=== PATIENT | female | born 1950 | race Caucasian/White ===

== ENCOUNTER 2019-04-23 08:02 | Inpatient (IN) ==
[2019-04-23 08:49] LABS: BASO# 0.01 X1000 (0.0-0.2); BASO% 0.1 % (0.0-0.8); EOS# 0.02 X1000 (0.0-0.7); EOS% 0.2 % (0.0-10.0); HEMATOCRIT 34.8 % (37.0-47.0); HEMOGLOBIN 12.4 g/dL (12.0-16.0); IMM GRAN# 0.03 X1000 (0.0-0.04); IMM GRAN% 0.2 % (0.0-0.5); LYMPH# 1.42 X1000 (1.2-3.4); LYMPH% 11.1 % (20.5-51.1); MCH 32.1 PG (27-31); MCHC 35.6 g/dL (33-37); MCV 90.2 FL (81-99); MONO# 1.33 X1000 (0.11-0.59); MONO% 10.4 % (1.7-9.3); MPV 9.3 FL (7.4-10.4); NEUT# 9.99 X1000 (1.4-6.5); PLT 309 X1000 (130-400); RBC 3.86 XMIL (4.2-5.4)
[2019-04-23 09:00] LABS: ESTIMATED GFR > 60
[2019-04-23] MEDS ORDERED: NS 1,000 ML IV ONE ×2 (09:24→09:31)
--- NOTE | 2019-04-23 09:28 | EKG Report ---
Test Performed on : 04/23/2019 08:30:33 AM Test Reason : fall/hypothermia Blood Pressure : / mmHG Vent. Rate : 068 BPM Atrial Rate : 068 BPM P-R Int : 180 ms QRS Dur : 108 ms QT Int : 438 ms P-R-T Axes : 079 070 044 degrees QTc Int : 465 ms Normal sinus rhythm. Possible Left atrial enlargement Incomplete right bundle branch block Borderline ECG When compared with ECG of 21-APR-2019 17:43, (Unconfirmed) No significant change was found Unconfirmed Result
[2019-04-23 09:33] LABS: CK INDEX 0.4 (0.0-2.5); CK-MB 43.21 ng/mL (0.0-5.0)
[2019-04-23 09:33] LABS: AGAP 17; ALBUMIN 4.6 g/dL (3.5-5.0); ALKALINE PHOSPHATASE 64 U/L (32-104); BUN 22 mg/dL (8-22); CALCIUM 9.8 mg/dL (8.8-10.2); CHLORIDE 83 mmol/L (98-107); COSMO 241; CREATININE 0.8 mg/dL (0.5-0.9); GLUCOSE 86 mg/dL (70-104); GOT 241 U/L (10-30); GPT 143 U/L (10-36); POTASSIUM 5.4 mmol/L (3.5-5.1); TCO2 18 mmol/L (25-35); TOTAL PROTEIN 7.3 g/dL (6.3-8.3)
[2019-04-23 09:39] LABS: SODIUM 118 mmol/L (136-145)
[2019-04-23 09:48] LABS: INR 1.06; PROTIME 14.4 Seconds (11.0-16.0)
[2019-04-23 09:49] LABS: PTT 35.2 Seconds (22.3-41.8)
--- NOTE | 2019-04-23 09:57 | Diag Imaging Result Doc PS360 ---
EXAM: CHEST-1 VIEW - 04/23/2019 HISTORY: r/o sepsis TECHNIQUE: Portable chest one view COMPARISON: 04/21/2019 chest two views FINDINGS: Heart size appears upper normal stable. Lungs appear grossly clear. There is no consolidation, pleural effusion, thorax identified. IMPRESSION: No evidence of acute disease. Electronically signed by Td Hawkins 04/23/2019 9:55 AM
[2019-04-23 10:25] LABS: FREE T4 1.75 ng/dL (0.93-1.70); TSH 0.91 uIUmL (0.27-4.20)
--- NOTE | 2019-04-23 10:34 | PROVIDER DOCUMENTATION ---
This chart was entered by [place] Scribe, acting as scribe for Jaylin Sebastian MD. HPI-General Adult - General Chief Complaint: Fall Stated Complaint: fall/ outside all night Time Seen by Provider: 04/23/19 08:13 Source: patient Allergies/Adverse Reactions: Patient Allergies Allergy/AdvReac Type Severity Reaction Status Date / Time Penicillins Allergy Severe RASH Verified 04/21/19 15:19 Sulfa (Sulfonamide Allergy Severe NAUSEA/VOMI Verified 04/21/19 15:19 Antibiotics) TING Home Medications: Home Medication List Medication Instructions Recorded Confirmed Last Taken Type Buspirone [Buspar] 15 mg PO BID 03/13/16 04/21/19 03/07/17 04:30 History Calcium Carbonate/Vitamin D3 1 each PO DAILY 03/13/16 04/21/19 03/06/17 09:00 History [Calcium 600-Vit D3 200 Tablet] Levothyroxine [Synthroid] 150 microgm PO DAILY 03/13/16 04/21/19 03/07/17 04:30 History Tramadol [Ultram] 50 mg PO TID 03/13/16 04/21/19 12/14/16 History Trazodone E.r. [Oleptro ER] 150 mg PO QHS 03/13/16 04/21/19 03/06/17 21:00 History Bupropion HCl [Bupropion Xl] 1 tab PO DAILY 04/21/19 04/21/19 Unknown History Meclizine HCl [Travel-Ease] 12.5 mg PO 04/21/19 Unknown History Pregabalin [Lyrica] 1 tab PO BID 04/21/19 04/21/19 Unknown History Promethazine HCl 25 mg PO BID 04/21/19 04/21/19 Unknown History Sertraline [Zoloft] 1 tab PO DAILY 04/21/19 04/21/19 Unknown History Sertraline [Zoloft] 50 mg PO DAILY 04/23/19 04/23/19 04/22/19 History - History of Present Illness -Gen Adult Nature of Presenting Problems: Patient is a 68 year old female who presents to the ED via EMS after being found outside. Patient states she fell yesterday around 1400 and could not get up. Reports she was found this morning by her neighbor. Denies pain currently. Location of Pain/Injury: reports: none Quality of Pain: reports: none Severity: reports: mild Onset/Duration: reports: other (1400 yesterday) Timing: reports: still present Context/Activities at Onset: reports: light activity Associated Symptoms: reports: denies symptoms Similar Symptoms Previously?: No Recently seen or treated by another doctor?: No Review of Systems - Adult - REVIEW OF SYSTEMS - ADULT Constitutional: reports: no symptoms reported Eyes: reports: no symptoms reported Ears, Nose, Mouth & Throat: reports: no symptoms reported Cardiovascular: reports: no symptoms reported Respiratory: reports: no symptoms reported Gastrointestinal: reports: no symptoms reported Genitourinary: reports: no symptoms reported Musculoskeletal: reports: no symptoms reported Integumentary: reports: no symptoms reported Neurological: reports: no symptoms reported Psychiatric: reports: no symptoms reported Endocrine: reports: no symptoms reported Hematologic/Lymphatic: reports: no symptoms reported Allergic/Immunologic: reports: no symptoms reported All Other Systems: Reviewed and Negative Past History - Adult - PAST MEDICAL HISTORY-ADULT Review of Records: reports: Old Records Reviewed, Nursing Assessment Review, Medications Reviewed, Social history reviewed & non-contributory. Major Childhood Illnesses: reports: denies history Cardiovascular: reports: denies history Respiratory: reports: COPD Gastrointestinal: reports: denies history Obstetrical/Gynecological: reports: denies history Genitourinary: reports: denies history Musculoskeletal: reports: denies history Neurological: reports: denies history Psychiatric: reports: bipolar Endocrine/Immune: reports: thyroid disorder Other Conditions: reports: denies history - PRIOR SURGERIES/PROCEDURES Surgical/Procedure History: reports: cholecystectomy, hysterectomy, hernia repair - IMMUNIZATION STATUS Childhood Immunizations: See Nurse Assessment Flu Vaccine: See Nurse Assessment - FAMILY HISTORY Family History: reviewed, not pertinent - SOCIAL HISTORY Smoking: cigarettes, less than 1 pack/day Provider spent 3-5 mins advising pt. on dangers of tobacco.: Discussed manners to quit use, and f/u contacts for add'l counseling. Substance Use: denies Physical Exam-General - PHYSICAL EXAM-ADULT Initial Vital Signs Reviewed: Yes - CONSTITUTIONAL General Appearance: alert, slow to respond - EYES Eyes: PERRL/EOMI - HEAD, EARS, NOSE, MOUTH & THROAT HENMT: normocephalic/atraumatic - NECK Neck: non-tender. negative: lymphadenopathy - RESPIRATORY Respiratory: lungs clear, normal breath sounds - CARDIOVASCULAR Cardiovascular: regular rate, rhythm, no edema - GASTROINTESTINAL (ABDOMEN) Abdominal Exam: non tender, soft - LYMPHATIC Lymphatic: no adenopathy - MUSCULOSKELETAL Back Exam: no CVA tenderness, no vertebral tenderness Extremity: non-tender - SKIN Integumentary: other (bruises on chest) - PSYCHIATRIC Psych/Mental Status: normal mood/affect Progress - PLAN OF CARE/RESULTS Progress/Plan/Lab Results: Vital Signs - 8 hr 04/23/19 08:01 04/23/19 08:52 04/23/19 09:19 Temperature 93.3 F L 97.8 F Pulse Rate 85 68 66 Respiratory Rate 20 21 22 Blood Pressure 141/080 165/83 88/65 O2 Sat by Pulse Oximetry 100 97 98 Laboratory Results - last 24 hr 04/23/19 04/23/19 04/23/19 08:21 08:21 09:00 WBC 12.80 H D RBC 3.86 L Hgb 12.4 D Hct 34.8 L MCV 90.2 MCH 32.1 H MCHC 35.6 RDW Std Deviation 12.0 Plt Count 309 MPV 9.3 Immature Gran % (Auto) 0.2 Neut % (Auto) 78.0 H Lymph % (Auto) 11.1 L [place] % (Auto) 10.4 H Eos % (Auto) 0.2 Baso % (Auto) 0.1 Immature Gran # (Auto) 0.03 Neut # (Auto) 9.99 H Lymph # (Auto) 1.42 [place] # (Auto) 1.33 H Eos # (Auto) 0.02 Baso # (Auto) 0.01 Estimated GFR/1.73 m2 > 60 Creatine Kinase 06953 H Orders Category Date Time Status CBC WITH ELECTRONIC DIFF [HEME] Stat Lab 04/23/19 08:21 Completed CK PROFILE [SP CHEM] Stat Lab 04/23/19 08:21 Results COMPREHENSIVE METABOLIC PANEL [CHEM] Stat Lab 04/23/19 09:00 Results Generalized Adult Illness >60 Stat Oth 04/23/19 08:22 Ordered EKG [EKG] Stat Ther 04/23/19 08:22 Ordered Result Diagrams: 04/23/19 08:21 04/23/19 09:00 - EKG 1 Time of EKG reading by physician:: 08:30 EKG Read and Signed by:: Jaylin Sebastian EKG Interpretation (*Must complete 3 of following elements*): Abnormal Rate: 68 Rhythm: normal sinus rhythm [place]: normal QRS: RBB (incomplete) MN Interval: normal Comments: possible left atrial enlargement - XRAY 1 XRAY Study: Chest Impression: See EMR Report ( EXAM: CHEST-1 VIEW - 04/23/2019 HISTORY: r/o sepsis TECHNIQUE: Portable chest one view COMPARISON: 04/21/2019 chest two views FINDINGS: Heart size appears upper normal stable. Lungs appear grossly clear. There is no consolidation, pleural effusion, thorax identified. IMPRESSION: No evidence of acute disease. Electronically signed by Td Hawkins 04/23/2019 9:55 AM 04/23/19 0955 Interpreting Physician: Td Hawkins MD Dictated Date/Time: 04/23/19951 cc: Jaylin Sebastian MD; Mary Jane Mahoney) - CONSULTS/PCP/HOSPITALIST Notification #1 *Consult/PCP/Hospitalist*: Dr. Alfred Time Discussed: 09:39 Reason/Comments: Dr. Sebastian consulted with Dr. Alfred about patient Consult Disposition: other (Tima states call back with kidney function.) #2 Consult: Dr. Alfred Time Discussed: 10:37 Reason/Comments: Dr. Sebastian consulted with Dr. Alfred about patient Consult Disposition: Will see in ED Departure - Departure Date of Disposition Decision: 04/23/19 Time of Disposition Decision: 09:39 DIAGNOSIS: Hyponatremia Rhabdomyolysis Qualifiers: Rhabdomyolysis type: traumatic Encounter type: initial encounter Qualified Code(s): T79.6XXA - Traumatic ischemia of muscle, initial encounter Hypothermia Qualifiers: Encounter type: initial encounter Qualified Code(s): T68.XXXA - Hypothermia, initial encounter Disposition: [facility] 02 Certified Medical Emergency: Emergent Condition: Serious Referrals and Follow-Ups: Mary Jane Mahoney CRNP [Primary Care Provider] - - Critical Care Note This patient required my direct & personal management of CC.: No Attestation - Physician/ EDDIE Attestation Patient care was provided by Advanced Practice Provider:: No The physician spent face to face time with patient:: Yes Advanced Practice Provider documentation review:: Supervising physician onsite and consulted in the evaluation and care of this patient. The physician did have a face to face encounter with the patient. This chart was documented by the indicated scribe, ([place] Scribe) and accurately reflects the services I performed and decisions made by Romulo ruelas Mai Huu, MD, as attested by the provider's signature.
[2019-04-23 10:42] LABS: BILIRUBIN URINE NEGATIVE (NEGATIVE); BLOOD URINE 4+ (NEGATIVE); CLARITY SL. CLOUDY (CLEAR); COLOR YELLOW; GLUCOSE URINE NEGATIVE (NEGATIVE); KETONE URINE 2+(Moderate) mg/dL (NEGATIVE); LEUKOCYTES URINE TRACE (NEGATIVE); NITRITE URINE NEGATIVE (NEGATIVE); PROTEIN URINE 1+(30 mg/dL) mg/dL (NEGATIVE); URINE BACTERIA 4+ /HFP; URINE CAST NONE SEEN /LPF; URINE CRYSTAL NONE SEEN /HPF; URINE EPITHELIAL CELLS <10 /HPF (<10); URINE RBC <10 /HPF (<10); URINE SOURCE CATH; URINE WBC <10 /HPF (<10); URINE YEAST NONE SEEN /HPF; UROBILINOGEN URINE NORMAL
--- NOTE | 2019-04-23 11:12 | Diag Imaging Result Doc PS360 ---
EXAM: CT HEAD W/O CONTRAST - 04/23/2019 HISTORY: head injury, lethargy TECHNIQUE: CT head without contrast COMPARISON: 04/21/2019 FINDINGS: There are mild artifacts from motion. There is no evidence of intracranial hemorrhage, mass effect, or midline shift. There is stable mild ventricular asymmetry compatible with long-standing change. There is no evidence of infarct, although acute infarcts may not be immediately visible. There is no evidence of skull fracture. Visualized portions of paranasal sinuses and mastoid air cells appear clear. IMPRESSION: No visible acute intracranial abnormality. No evidence of intracranial injury. No hemorrhage or mass effect. This exam was performed using automated exposure control, adjustment of mA or kV according to patient size, and/or use of iterative reconstruction technique. Electronically signed by Td Hawkins 04/23/2019 11:10 AM
[2019-04-23] MEDS ORDERED: DUONEB (A & A) INH PRN (12:03)
[2019-04-23] MEDS ORDERED: NS 1,000 ML IV SCH ×4 (12:03→15:45)
[2019-04-23] MEDS ORDERED: ZOFRAN IV PRN (12:03)
[2019-04-23] MEDS ORDERED: TAZIDIME 1 GM in NS 50 ML IV SCH (12:15)
[2019-04-23] MEDS: MAXIPIME 1 GM in NS 50 ML IV SCH (12:39)
--- NOTE | 2019-04-23 13:08 | Diag Imaging Result Doc PS360 ---
EXAM: XRAY HIP W/PELVIS BILAT 3-4VWS 04/23/2019 HISTORY: frequent falls and unable to bare weight TECHNIQUE: AP pelvis and bilateral hips four views COMMENT: The hip joint spaces are well-maintained. There is no evidence of fracture or dislocation. IMPRESSION: No acute bony abnormality. Electronically signed by Kapil Waters 04/23/2019 1:06 PM
--- NOTE | 2019-04-23 14:02 | HISTORY AND PHYSICAL ---
PRIMARY CARE PROVIDER: NITZA Rosenberg. CHIEF COMPLAINT: Falls. HISTORY OF PRESENT ILLNESS: Ms. Francy Solorio is a 68-year-old female with a medical history of bipolar disorder and GERD, frequent UTIs and pneumonia, arthritis, hypothyroidism, and COPD. She states that on she had a fall outside going down her steps. At that time, she landed on her left side and developed left wrist pain, right elbow, and just generally left-sided pain. She went to her primary care provider Mary Jane Mahoney on Tuesday, where she was seen for the fall, and then sent home. She actually drove herself there. Then, she had another fall on Tuesday morning where she came here to the emergency department. She was scanned on her wrist, which did not reveal any fractures, and then she was sent home. Yesterday Tuesday around 1:00 or 2:00 in the afternoon, she had another fall going downstairs, but this time was not able to get up. She yelled, and no one was able to help her, and she essentially stayed outside in the cold until about 8:00 this morning where she was found by school kids. Laboratory data reveals that she has a low sodium level, elevated potassium level, and elevated liver enzymes along with significant elevation in her CK with preserved kidney function. It also looks like she may have urinary tract infection but she denies any urinary symptoms. [place] [address], and she came in with a temperature of 93.3 degrees. She was warmed up with the Kristina Hugger blanket warmer. Currently, she is alert. She is stable. She is able to answer all questions appropriately. She states that she still cannot bear weight, and we are going to transfer her to the ICU over at [facility] for further evaluation and treatment. We will also image her hip and pelvis just to make sure there is no fracture, and that is why she was unable to get up. She denies any pain in this area. PAST MEDICAL HISTORY: 1. COPD. 2. Peripheral neuropathy. 3. Bipolar disorder. 4. GERD. 5. Frequent pneumonia and urinary tract infections. 6. Osteoarthritis. 7. Hypothyroidism. PAST SURGICAL HISTORY: 1. Hysterectomy. 2. Multiple ankle surgeries. 3. Diaphragmatic hernia repair. 4. Cholecystectomy. 5. Left knee scoped. SOCIAL HISTORY: She smokes around 5 cigarettes per day. She has been smoking since age of 28. She drinks 1 glass of red wine about once every 1 to 2 weeks. Denies any illicit drug use. She lives by herself. She is still driving. She is . She does not work. Lives in [place]. She has 3 adult children. FAMILY HISTORY: Mother had heart disease. Father unknown of any medical conditions. She states he lived to his 80s. ALLERGIES: Penicillin and sulfa, but also she can tolerate Keflex and ceftazidime according to Dr. Garcia's note from 2017. HOME MEDICATIONS: Have not been reconciled yet. REVIEW OF SYSTEMS: Fourteen point review of systems, are complete and all were negative for those mentioned above in HPI. She denied fever, chills, other than being cold from last night. She does have some nausea and has pain in the left rib, right elbow and in both elbows and both knees. They are both skinned up. She is bruised up and down the left side. PHYSICAL EXAMINATION: VITAL SIGNS: Temperature 98.1 degrees, heart rate 77, respiratory rate 21, blood pressure 145/65, and O2 saturation 97% on room air. GENERAL: Ms. Francy Solorio is a 68-year-old female. She is in no acute distress. She is able to answer questions appropriately. HEENT: Atraumatic, normocephalic. Pupils are equal and reactive. Extraocular movements intact. Mucous membranes are actually very moist. She has no teeth. Her drop lower jaw protrudes, and so does her tongue while speaking. NECK: Trachea midline. CARDIOVASCULAR: S1, S2. Regular rate and rhythm. No rubs, gallops, or murmurs. No lower extremity edema. +2 dorsalis and radial pulses negative for JVD or carotid bruits. PULMONARY: Clear to auscultation. Some mild expiratory wheezes noted. No accessory muscle use or work of breathing noted. ABDOMEN: Soft, nontender, and nondistended. Positive bowel sounds x4. EXTREMITIES: Difficulties with range of motion in the lower extremities. The strength is equal about 3/5. 5/5 hand strength bilaterally. Moves all upper extremities equally. NEUROLOGIC: Alert and oriented x3. Follows commands. Sensory is intact. SKIN: Warm and dry. She has got abrasions on both knees and on both elbows. She has a lot of ecchymosis in the left hand. Ecchymosis in the left shoulder, left ribs and down to the left flank area. There is some bruising over the right elbow, both knees and down the shins. These are different stages of bruising. LABORATORY DATA: White blood cells 12,000, hemoglobin 12, hematocrit 34, and platelet count 309,000. INR is 1.06. PTT 35.2. Sodium 118, potassium 5.4, BUN 22, creatinine 0.8, glucose 86, calcium 9.8, bilirubin 0.90, AST 241, ALT 143. CK 11,098. Index 0.4, MB is 43, troponin less than 0.01. Albumin 4.6. Serum lactate 0.9. TSH 0.91, free T4 is 1.75. Urinalysis slightly cloudy, 1+ protein, 2+ ketones, 4+ blood and negative nitrite, trace white blood cells, 4+ bacteria. No yeast. IMAGING: Chest x-ray no acute disease. Head CT no acute disease. EKG normal sinus rhythm, rate 68, QTc 465. ASSESSMENT/PLAN: 1. Hypothermia secondary to fall around 1:00 in the afternoon yesterday until 8:00 in the morning today so that is at least 19 to 20 hours of being out in the freezing cold outside. She was warmed with a Kristina Hugger, and a blanket warmer, and is now normal thymic. 2. Frequent falls. She has had 3 falls since . There are no obvious fractures, but this last fall she was unable to get up, and could be secondary to her strength, but we will get some imaging of her hip and pelvis just to make sure there is no fracture there. 3. Left wrist imaging was done on when she came in. It was negative for any fracture as well. Multiple abrasions different stages of bruising on the left side, and on both elbows and legs. Want to get physical therapy to help her as well. 4. Bipolar. We will resume her home medications once reconciled. 5. Hypothyroidism. Continue Synthroid once is reconciled. 6. Peripheral neuropathy. 7. COPD. We will do nebulizers. She did have some mild expiratory wheezes. 8. Rhabdomyelitis. She will get aggressive IV fluid hydration. She has preserved kidney function. 9. Hyponatremia. She is going to be getting sodium chloride IV fluids. She is currently not confused. 10. Hyperkalemia. Should improve with IV fluid hydration. 11. GERD. Continue proton pump inhibitor. 12. Urinary tract infection but currently denies any urinary symptoms. We will do ceftazidime what she has had in the past, and apparently has not had any allergic reaction to it according to an old note of Dr. Garcia's. 13. Tobacco abuse. Cessation discussed. 14. Since she is going to be getting aggressive IV fluid hydration for her rhabdomyolysis, we will order an echocardiogram to check her heart function. Dictated by NITZA Ricks for Neo Alfred MD cc: NITZA Ricks MD
[2019-04-23 15:41] LABS: AGAP 16; BUN 18 mg/dL (8-22); CALCIUM 8.2 mg/dL (8.8-10.2); CHLORIDE 90 mmol/L (98-107); COSMO 253; CREATININE 0.8 mg/dL (0.5-0.9); ESTIMATED GFR > 60; GLUCOSE 91 mg/dL (70-104); PHOSPHORUS 2.2 mg/dL (2.7-4.5); SODIUM 125 mmol/L (136-145); TCO2 19 mmol/L (25-35)
[2019-04-23 15:50] LABS: CK TOTAL 10814 U/L (24-173)
[2019-04-23] MEDS: DUONEB (A & A) INH SCH ×2 (15:53→21:18)
[2019-04-23] MEDS: NS 1,000 ML IV SCH (17:37)
--- NOTE | 2019-04-23 20:07 | HISTORY AND PHYSICAL ---
ADDENDUM: Patient seen and examined by myself. Full note dictated and discussed with nurse practitioner. The patient is a quite ill female who apparently had fallen off her porch last night, and had laid on the ground until someone found her this morning. Upon initial exam, she had a CPK at 11,000, sodium at 118, potassium at 5.4. AST and ALT both were elevated. We are going to admit her to the hospital, place her on IV fluids, follow her rhabdomyolysis. She certainly may require bicarb if she does not turn around quickly. We will follow her potassium. Further orders as needed. cc: Neo Alfred MD
[2019-04-23] MEDS: PRILOSEC PO SCH (20:22)
[2019-04-23] MEDS: HEPARIN SUBQ SCH (20:22)
[2019-04-23] MEDS: MIRALAX PO SCH (20:22)
[2019-04-23] MEDS: PULMICORT INH SCH (21:19)
[2019-04-24] MEDS: MAXIPIME 1 GM in NS 50 ML IV SCH ×2 (00:59→12:50)
[2019-04-24] MEDS: NS 1,000 ML IV SCH ×2 (00:59→11:50)
[2019-04-24] MEDS: DUONEB (A & A) INH SCH ×4 (03:49→21:12)
[2019-04-24 06:01] LABS: INR 1.21; PROTIME 15.5 Seconds (11.0-16.0); PTT 33.4 Seconds (22.3-41.8)
[2019-04-24] MEDS: SYNTHROID PO SCH (06:03)
[2019-04-24] MEDS: PRILOSEC PO SCH ×2 (06:03→20:19)
[2019-04-24 06:11] LABS: PHOSPHORUS 2.2 mg/dL (2.7-4.5)
[2019-04-24 06:13] LABS: AGAP 14; ALB/GLOB RATIO 1.8; ALBUMIN 3.3 g/dL (3.5-5.0); ALKALINE PHOSPHATASE 43 U/L (32-104); BUN 14 mg/dL (8-22); CALCIUM 8.4 mg/dL (8.8-10.2); CHLORIDE 97 mmol/L (98-107); COSMO 263; CREATININE 0.7 mg/dL (0.5-0.9); ESTIMATED GFR > 60; GLUCOSE 88 mg/dL (70-104); GOT 159 U/L (10-30); GPT 105 U/L (10-36); MAGNESIUM 1.8 mg/dL (1.5-2.7); POTASSIUM 3.6 mmol/L (3.5-5.1); SODIUM 131 mmol/L (136-145); TCO2 20 mmol/L (25-35); TOTAL BILIRUBIN 0.47 mg/dL (0.20-1.00); TOTAL PROTEIN 5.1 g/dL (6.3-8.3)
[2019-04-24 06:20] LABS: HEMATOCRIT 25.5 % (37.0-47.0); HEMOGLOBIN 9.1 g/dL (12.0-16.0); MCH 32.5 PG (27-31); MCHC 35.7 g/dL (33-37); MCV 91.1 FL (81-99); MPV 9.5 FL (7.4-10.4); RBC 2.8 XMIL (4.2-5.4); RDW 12.1 % (11.5-14.5); WBC 6.44 X1000 (4.8-10.8)
[2019-04-24 06:51] LABS: CK INDEX 0.3 (0.0-2.5); CK-MB 22.61 ng/mL (0.0-5.0)
--- NOTE | 2019-04-24 07:04 | Diag Imaging Result Doc PS360 ---
EXAM: CHEST-PORTABLE 04/24/2019 HISTORY: sob TECHNIQUE: AP portable semiupright at 0454 COMMENT: Considering differences in technique there has been no appreciable change since 04/23/2019. IMPRESSION: Stable chest. Electronically signed by Kapil Waters 04/24/2019 7:02 AM
--- NOTE | 2019-04-24 07:26 | EKG Report ---
Test Performed on : 04/24/2019 07:06:35 AM Test Reason : rhabdo Blood Pressure : / mmHG Vent. Rate : 069 BPM Atrial Rate : 069 BPM P-R Int : 168 ms QRS Dur : 120 ms QT Int : 446 ms P-R-T Axes : 070 075 044 degrees QTc Int : 477 ms Normal sinus rhythm. Right bundle branch block Abnormal ECG When compared with ECG of 23-APR-2019 08:30, (Unconfirmed) ST no longer depressed in Inferior leads Confirmed by Tae LOUISE, P.J.M ([id number]) on 04/25/2019 7:55:50 PM
[2019-04-24] MEDS ORDERED: KLOR-CON PO ONE (07:59)
[2019-04-24] MEDS ORDERED: KLOR-CON PO SCH (08:00)
[2019-04-24] MEDS: BUSPAR PO SCH ×2 (08:46→20:19)
[2019-04-24] MEDS: CALTRATE 600 + D PO SCH (08:46)
[2019-04-24] MEDS: MIRALAX PO SCH ×2 (08:46→20:16)
[2019-04-24] MEDS: MYCOSTATIN SUSP PO SCH ×4 (08:46→20:19)
[2019-04-24] MEDS: HEPARIN SUBQ SCH ×2 (08:46→20:19)
--- NOTE | 2019-04-24 08:50 | Diag Imaging Result Doc PS360 ---
CT ABDOMEN/PELVIS W/O CONTRAST - 04/24/2019 INDICATION: Evaluate for pyelonephritis/nephrolithiasis COMPARISON: None FINDINGS: There are a couple of tiny, trace infiltrates in the lung bases bilaterally. No pleural effusions. Heart size is normal. Anemia is present. There is a small hiatal hernia. There may have been a Carly procedure. There are cholecystectomy clips. No radiodense renal stones. No hydronephrosis or hydroureter. Otherwise abdominal organs are all normal. There is significant diffuse constipation. No bowel obstruction or inflammation. Kaba catheter in the urinary bladder. Uterus is absent. Rectum is normal. There are moderate degenerative changes of the spine. No acute or suspicious bony lesion. IMPRESSION: 1. Significant diffuse constipation. 2. Trace nonspecific infiltrates in the lung bases. This exam was performed using automated exposure control, adjustment of mA or kV according to patient size, and/or use of iterative reconstruction technique Electronically signed by Ayan Vernon 04/24/2019 8:47 AM
[2019-04-24] MEDS ORDERED: ZOLOFT PO SCH (09:00)
[2019-04-24] MEDS: PULMICORT INH SCH ×2 (09:30→21:12)
--- NOTE | 2019-04-24 10:31 | PROGRESS NOTE ---
DATE: 04/24/2019 INTERVAL HISTORY: Overnight, one of the blood cultures was growing gram-negative rods. The patient has been on intravenous cefepime though. SUBJECTIVE: She is feeling better than before. She denies any nausea, vomiting, or abdominal pain. She states she never had a history of nephrolithiasis. She denies any chest pain, shortness of breath, nausea, vomiting, or abdominal pain. She states that she would like to keep the urine catheter for now. She is feeling stronger than before. We discussed about blood culture findings, urine infection, answered all of her questions. VITALS: Currently, temperature 97.6 degrees, pulse 67, respiratory rate 17, blood pressure 128/44, she is saturating 96% on room air. PHYSICAL EXAMINATION: She is not in any acute distress. Oral cavity is dry and has some oral candidiasis. Air entry bilaterally equal. No wheeze, rhonchi, or crackles except mild infrascapular crackles for which I ask her to use incentive spirometry. Cardiovascular: S1, S2 normal. No murmur, rub, or gallop. Abdomen: Soft, nontender. No flank tenderness. No lower extremity edema. She does have bruising over bilateral knees as well as left wrist. LABS: Suggestive of resolution of leukocytosis, anemia. She also has hyponatremia and hypochloremia, which is improving. Her potassium is low, which is currently being repleted. Her blood culture is growing gram-negative rods. Previously, urine culture drawn in the emergency room has been growing Escherichia coli. ASSESSMENT AND PLAN: 1. Sepsis due to gram-negative chet, likely because of urinary tract infection. Followup CT scan of the abdomen and pelvis to rule out acute pyelonephritis, nephrolithiasis, any abscess. I will continue intravenous cefepime and follow up with another set of blood cultures tomorrow. We will try and remove the Kaba catheter as well since her kidney function appears to be normal. I will keep her on gentle intravenous fluid resuscitation with potentially stopping in the future. 2. Hypothermia on presentation, likely because she was exposed to cold when she fell down. Currently, temperature is normal. Her TSH was also normal. 3. Frequent falls recently. This could be related to her urinary tract infection and sepsis. I will have physical therapy evaluate her. Her imaging did not show any acute fracture abnormality. 4. Hypothyroidism and bipolar mood disorder. I will resume her home medications as tolerated. 5. Chronic obstructive pulmonary disease. Currently no wheezes. I will continue albuterol- ipratropium nebulization. 6. Rhabdomyolysis, likely because of mechanical falls which most likely contributed to hyponatremia, hypochloremia, and transaminitis. I will follow up with electrolytes, liver function tests in the future, and continue gentle intravenous fluid resuscitation. Her CPK is declining. 7. Disposition. The patient appears to be hemodynamically stable and I will consider transferring her out to PVC unit. Plan of care discussed with her. Her questions have been answered. cc: Ernesto Troncoso MD
[2019-04-24] MEDS ORDERED: VASELINE TOP ONE (11:50)
--- NOTE | 2019-04-24 13:21 | ECHO REPORT ---
ORDER DATE: 04/23/2019 INDICATION: Shortness of breath, COPD. FINDINGS: 1. The right atrium appears normal in size. 2. Mild tricuspid regurgitation. RV systolic pressure of 48. 3. Normal RV size and systolic. 4. No significant pulmonic insufficiency. 5. Mild left atrial enlargement with a dimension of 4 cm, volume index of 30. 6. No mitral valve prolapse. Mild mitral regurgitation. No evidence of mitral stenosis. 7. Normal LV size, end-diastolic dimension of 5.2. Normal wall thicknesses with a posterior and interventricular septal wall thickness of 0.9 cm each. Normal LV systolic function. Estimated EF of 65% with normal wall motion. 8. The aortic valve opens well. It is trileaflet. Trace insufficiency, no stenosis. 9. The aorta appears normal in visualized segments. 10. No pericardial effusion seen. cc: MD Manju Levy CRNP
[2019-04-24] MEDS: DESYREL PO SCH (20:18)
[2019-04-25] MEDS: MAXIPIME 1 GM in NS 50 ML IV SCH (00:22)
[2019-04-25] MEDS: DUONEB (A & A) INH SCH (03:29)
[2019-04-25] MEDS: PRILOSEC PO SCH ×2 (06:03→21:32)
[2019-04-25] MEDS: NS 1,000 ML IV SCH (06:04)
[2019-04-25] MEDS: SYNTHROID PO SCH (06:04)
[2019-04-25 06:07] LABS: BASO# 0.02 X1000 (0.0-0.2); BASO% 0.4 % (0.0-0.8); EOS# 0.13 X1000 (0.0-0.7); EOS% 2.4 % (0.0-10.0); HEMOGLOBIN 9.7 g/dL (12.0-16.0); LYMPH# 1.33 X1000 (1.2-3.4); LYMPH% 24.8 % (20.5-51.1); MCH 31.9 PG (27-31); MCHC 34.6 g/dL (33-37); MCV 92.1 FL (81-99); MONO# 0.64 X1000 (0.11-0.59); MONO% 11.9 % (1.7-9.3); MPV 9.7 FL (7.4-10.4); NEUT# 3.25 X1000 (1.4-6.5); NEUT% 60.5 % (42.2-75.2); PLT 231 X1000 (130-400); RBC 3.04 XMIL (4.2-5.4); RDW 12.6 % (11.5-14.5); WBC 5.37 X1000 (4.8-10.8)
[2019-04-25 06:31] LABS: AGAP 12; BUN 9 mg/dL (8-22); CHLORIDE 104 mmol/L (98-107); COSMO 274; CREATININE 0.7 mg/dL (0.5-0.9); ESTIMATED GFR > 60; GLUCOSE 98 mg/dL (70-104); MAGNESIUM 1.7 mg/dL (1.5-2.7); POTASSIUM 4.1 mmol/L (3.5-5.1); SODIUM 138 mmol/L (136-145); TCO2 22 mmol/L (25-35)
[2019-04-25] MEDS: PULMICORT INH SCH ×2 (08:03→19:25)
[2019-04-25] MEDS: DUONEB (A & A) INH PRN (08:04)
[2019-04-25] MEDS: BUSPAR PO SCH ×2 (08:44→21:32)
[2019-04-25] MEDS: MYCOSTATIN SUSP PO SCH ×4 (08:44→21:32)
[2019-04-25] MEDS: ZOLOFT PO SCH (08:44)
[2019-04-25] MEDS: HEPARIN SUBQ SCH ×2 (08:44→21:32)
[2019-04-25] MEDS: MIRALAX PO SCH ×2 (08:44→21:31)
[2019-04-25] MEDS: WELLBUTRIN XL PO SCH (08:44)
[2019-04-25] MEDS: CALTRATE 600 + D PO SCH (08:44)
--- NOTE | 2019-04-25 11:15 | PROGRESS NOTE ---
DATE: 04/25/2019 INTERVAL HISTORY: She underwent CT scan of abdomen and pelvis which had detected constipation without any pyelonephritis. She tolerated the CT scan well, did not have any other acute overnight events. Her vitals are unremarkable. Her BMP suggests resolution of hyponatremia and her normal saline fluids have been stopped. SUBJECTIVE: She is feeling much better. She says she has had bowel movements. We discussed about urine culture, blood culture results. I answered all of her questions. VITAL SIGNS: Temperature 97.8 degrees, pulse 70, respiratory rate 20, blood pressure 130/80, saturating 96% on room air. PHYSICAL EXAMINATION: General: Does not appear in acute distress. Oral cavity is moist. Lungs: Air entry bilaterally equal. No wheeze, rhonchi, or crackles. Cardiovascular: S1, S2 normal. No murmur, rub or gallop. Abdomen: Soft, nontender. Extremities: No lower extremity edema. She does have bruising of bilateral knees and left wrist. LABORATORY DATA: CBC shows anemia which is now stable. Normal platelet count. Resolution of hyponatremia with sodium of 138, chloride of 104, normal kidney function. Magnesium is 1.7. Urine culture is growing Escherichia coli. One of the 2 blood cultures was growing bacillus which was likely a contaminant. Repeat blood cultures are in lab and I will consider changing antibiotics to intravenous cefazolin. IMAGING: No new imaging except abdomen and pelvis CT yesterday which had constipation. ASSESSMENT AND PLAN: 1. Sepsis due to Escherichia coli acute urinary tract infection without any evidence of nephrolithiasis or pyelonephritis. Change antibiotics to intravenous cefazolin. Repeat blood cultures are in lab. Bacillus in 1 of the 2 blood cultures initially is likely a contaminant. Stop intravenous fluids. Continue oral diet. 2. Hypothermia on presentation because of exposure to extreme cold weather, now normal. TSH was normal. 3. Frequent fall recently, likely due to urinary tract infection and sepsis. Physical Therapy on board. No acute fracture. 4. Others. Continue home levothyroxine for hypothyroidism; trazodone and bupropion, buspirone, and sertraline for history of bipolar mood disorder; albuterol ipratropium nebulization for history of chronic obstructive pulmonary disease. 5. Rhabdomyolysis in the setting of mechanical falls leading to electrolyte abnormalities and transaminitis, improved. 6. Disposition. Transfer patient to routine medical floor. Plan of care discussed with her. Her questions have been answered. cc: Ernesto Troncoso MD
[2019-04-25] MEDS: KEFZOL 1 GM/D5W 1 GM/50 ML IVPB IV SCH ×2 (14:01→21:31)
[2019-04-25] MEDS: DESYREL PO SCH (21:32)
[2019-04-26] MEDS: KEFZOL 1 GM/D5W 1 GM/50 ML IVPB IV SCH ×3 (03:16→21:41)
[2019-04-26] MEDS: SYNTHROID PO SCH (06:01)
[2019-04-26] MEDS: PRILOSEC PO SCH ×2 (06:01→21:26)
[2019-04-26] MEDS: BUSPAR PO SCH ×2 (08:13→21:26)
[2019-04-26] MEDS: ZOLOFT PO SCH (08:13)
[2019-04-26] MEDS: WELLBUTRIN XL PO SCH (08:13)
[2019-04-26] MEDS: CALTRATE 600 + D PO SCH (08:14)
[2019-04-26] MEDS: MIRALAX PO SCH ×2 (08:14→21:27)
[2019-04-26] MEDS: HEPARIN SUBQ SCH ×2 (08:14→21:26)
[2019-04-26] MEDS: MYCOSTATIN SUSP PO SCH ×4 (08:14→21:27)
[2019-04-26] MEDS: DUONEB (A & A) INH PRN ×2 (10:46→21:00)
[2019-04-26] MEDS: PULMICORT INH SCH ×2 (10:46→21:39)
[2019-04-26] MEDS: DESYREL PO SCH (21:26)
--- NOTE | 2019-04-26 21:34 | PROGRESS NOTE ---
DATE: 04/26/2019 INTERVAL HISTORY: No acute events overnight. SUBJECTIVE: She is feeling better. We discussed about awaiting final blood culture results and accordingly planning discharge. She is in agreement. VITALS: Currently, temperature 99.9 degrees, pulse 78, respiratory rate 16, blood pressure 150/60, saturating 97% room air. PHYSICAL EXAMINATION: General: Does not appear in acute distress. Oral cavity is moist. Air entry bilaterally equal. No wheeze, rhonchi, crackles. S1, S2 normal. No murmur, rub, or gallop. Abdomen: Soft, nontender. No lower extremity edema. She is alert and oriented x3. LABORATORY DATA: No CBC or BMP today. ASSESSMENT: 1. Sepsis due to Escherichia coli urinary tract infection. 2. Hypothermia because of extreme cold exposure. 3. Frequent falls likely related to sepsis due to urinary tract infection due to Escherichia coli. 4. Hypothyroidism. 5. Bipolar mood disorder. 6. History of chronic obstructive pulmonary disease. 7. Rhabdomyolysis due to mechanical fall on presentation with transaminitis. PLAN: Continue intravenous cefazolin and change it to oral Keflex at the time of discharge. Continue home medications of sertraline, trazodone, buspirone for bipolar mood disorder, albuterol/ipratropium with budesonide for COPD. If her blood cultures are negative, my plan is to discharge her home tomorrow. Plan of care discussed with her. All questions have been answered. cc: Ernesto Troncoso MD
[2019-04-27] MEDS: SYNTHROID PO SCH ×2 (05:18→06:48)
[2019-04-27] MEDS: PRILOSEC PO SCH ×2 (05:18→06:47)
[2019-04-27] MEDS: KEFZOL 1 GM/D5W 1 GM/50 ML IVPB IV SCH (05:18)
[2019-04-27 07:22] LABS: BASO# 0.01 X1000 (0.0-0.2); BASO% 0.2 % (0.0-0.8); EOS# 0.25 X1000 (0.0-0.7); EOS% 4.7 % (0.0-10.0); HEMOGLOBIN 10.3 g/dL (12.0-16.0); LYMPH# 1.78 X1000 (1.2-3.4); LYMPH% 33.7 % (20.5-51.1); MCH 31.5 PG (27-31); MCHC 33.2 g/dL (33-37); MCV 94.8 FL (81-99); MONO% 13.3 % (1.7-9.3); MPV 9.3 FL (7.4-10.4); NEUT# 2.54 X1000 (1.4-6.5); NEUT% 48.1 % (42.2-75.2); PLT 285 X1000 (130-400); RBC 3.27 XMIL (4.2-5.4); RDW 12.8 % (11.5-14.5); WBC 5.28 X1000 (4.8-10.8)
[2019-04-27 07:58] LABS: AGAP 14; ALB/GLOB RATIO 1.6; ALBUMIN 3.9 g/dL (3.5-5.0); ALKALINE PHOSPHATASE 48 U/L (32-104); BUN 10 mg/dL (8-22); CALCIUM 9.6 mg/dL (8.8-10.2); CHLORIDE 97 mmol/L (98-107); COSMO 271; CREATININE 0.8 mg/dL (0.5-0.9); ESTIMATED GFR > 60; GLUCOSE 90 mg/dL (70-104); GOT 91 U/L (10-30); GPT 88 U/L (10-36); MAGNESIUM 1.6 mg/dL (1.5-2.7); POTASSIUM 4.6 mmol/L (3.5-5.1); SODIUM 136 mmol/L (136-145); TCO2 25 mmol/L (25-35); TOTAL BILIRUBIN 0.46 mg/dL (0.20-1.00); TOTAL PROTEIN 6.4 g/dL (6.3-8.3)
[2019-04-27] MEDS: MIRALAX PO SCH (08:30)
[2019-04-27] MEDS: WELLBUTRIN XL PO SCH (08:31)
[2019-04-27] MEDS: HEPARIN SUBQ SCH (08:36)
[2019-04-27] MEDS: CALTRATE 600 + D PO SCH (08:36)
[2019-04-27] MEDS: BUSPAR PO SCH (08:36)
[2019-04-27] MEDS: MYCOSTATIN SUSP PO SCH (08:36)
[2019-04-27] MEDS: ZOLOFT PO SCH (08:36)
[2019-04-27] MEDS: PULMICORT INH SCH (11:05)
[2019-04-27] MEDS: DUONEB (A & A) INH PRN (11:05)
[2019-04-27 12:31] VITALS: BP 140/65
--- NOTE | 2019-04-28 13:14 | DISCHARGE SUMMARY ---
ADMISSION DATE: 04/23/2019 DISCHARGE DATE: 04/27/2019 DISCHARGE DISPOSITION: Home. DISCHARGE CONDITION: Hemodynamically stable. She is alert, oriented x3. She is able to walk in the hallway with minimal support. She is denying any complaints. DISCHARGE DIAGNOSES: 1. Sepsis due to Escherichia coli acute cystitis related urinary tract infection. 2. Hypothermia because of extreme cold exposure on presentation. 3. Frequent falls related to sepsis and urinary tract infection. 4. Rhabdomyolysis due to mechanical fall. 5. Transaminitis related to rhabdomyolysis on presentation. 6. Hyponatremia and hyperkalemia related to rhabdomyolysis. OTHER DIAGNOSES: 1. History of chronic obstructive pulmonary disease. 2. History of peripheral neuropathy. 3. History of bipolar mood disorder. 4. Chronic gastroesophageal reflux disease. Hypothyroidism. 5. Tobacco abuse. DISCHARGE MEDICATIONS: 1. Bupropion extended release 300 mg daily. 2. Buspirone 50 mg b.i.d. 3. Calcium carbonate vitamin D 1 tablet daily. 4. Lyrica 200 mg b.i.d. 5. Promethazine 25 mg b.i.d. as needed for nausea and vomiting. 6. Levothyroxine 150 mcg daily. 7. Meclizine 12.5 mg every 8 hours as needed for vertigo. 8. Sertraline 50 mg daily. 9. Cephalexin or Keflex 250 mg every 6 hours for UTI 6 tablets have been prescribed. VITALS: At the time of discharge temperature 97.5 degrees, pulse 91, respiratory 14, blood pressure 130/60, saturating 96% room air. PHYSICAL EXAMINATION: General: Does not appear in acute distress. Oral cavity is moist. Air entry bilaterally equal. No wheeze, rhonchi, crackles. S1 normal, no murmur or gallop. Abdomen: Soft, nontender. No lower extremity edema. She was alert oriented x3. She was able to walk in the hallway without any trouble. SIGNIFICANT LABS: Her WBC was 12,000 on admission which improved to 5000 at the time of discharge, hemoglobin 10.3, platelet 285,000. Her sodium was 118 on presentation which improved to 136 at the time of discharge, her BUN improved from 22 to 10, her creatinine was 0.8, on presentation her ALT was 143 which improved to 88, her AST was 241 which improved to 91 at the time of discharge. Her TSH was 0.9. Microbiology. Urine culture was growing E coli which was sensitive to cefazolin. Initial 1 of the 2 blood cultures was growing bacillus species. Repeat blood cultures on April 25 two of them did not have any growth. It was thought to be a contaminant. SIGNIFICANT IMAGING: Chest x-ray on admission did not have any evidence of acute disease. Head CT on admission did not have visible acute intracranial abnormality or intracranial injury or hemorrhage or mass effect. Hip, pelvis x-ray did not have any acute bony abnormalities. Echocardiogram had ejection fraction of 65% with normal wall motion without any pericardial effusion. Abdomen pelvis CT on April 24 had significant diffuse constipation, trace nonspecific infiltrate in the lung bases. EKG on admission had normal sinus rhythm, possible left atrial enlargement, incomplete right bundle branch block . HOSPITAL COURSE SUMMARY: Ms. Solorio is a 68 years old lady who initially presented on 04/23/2019 with chief complaints of recurrent falls, 3 days prior to presentation she had a fall and she had developed left wrist injury, right elbow injury and she had seen her primary care doctor and from there she went home, however 48 hours prior to presentation she had another fall so she decided to come to the hospital. Her x-ray did not have any acute bony pathologies and she was sent home but she experienced another fall and she was not able to get up and she remained in cold environment for many hours until she was found by school kids so she was taken to the emergency room. On arrival she was found to have temperature of 93.3 degrees and creatine kinase of 11,000 so she was admitted for intravenous fluid resuscitation and intravenous antibiotics were started since her urine had trace WBCs. With intravenous fluid resuscitation and antibiotics she improved so she was initially kept in ICU and slowly transitioned to routine floor since she was initially hypotensive. With antibiotics she improved and her urine culture grew E coli so her antibiotics were downgraded. At the time of discharge she is alert, oriented x3. She is able to walk in the hallway occasionally using walker and sometimes without help without any tendency to fall so it was decided to discharge her and have outpatient followup with her regular provider. TIME SPENT: More than 30 minutes. Plan of care discussed with her. All of her questions were answered. cc: Ernesto Troncoso MD [facility]
== END 2019-04-27 13:46 | disposition home health service (06) | DRG 872 ==
LOC: P.ED 08:02 → SUATTDRO 13:20 → ICU 13:20 → 4N 04-25 09:59
PROVIDERS: ATTEND Internal Medicine